=== PATIENT | male | born 2005 | race Caucasian/White ===

== ENCOUNTER 2023-04-20 13:50 | Emergency (ER) | payer BC, SELFPAY ==
[2023-04-20 13:56] VITALS: BP 138/85; PULSE 77; RESP 16; TEMP 36.4; O2SAT 100; BMI 23.7
--- NOTE | 2023-04-20 14:08 | ED.NAVMDI1 ---
Documented by User: Deannapartha Damonon 04/20/23 15:52 HPI - Nausea/Vomiting/Diarrhea General Chief complaint: Nausea/Vomiting/Diarrhea Stated complaint: HOT/COLD FLASHES/HEADACHES/NAUSEA/DIARRHEA Time Seen by Provider: 04/20/23 14:07 Source: patient Mode of arrival: walk-in Limitations: no limitations History of Present Illness HPI Narrative: 18 year old male presents to the ED for fatigue, nausea, diarrhea. Onset was a few days ago. Denies fever, JAVED, dizziness, sore throat, congestion. Denies CP, cough, SOB. Denies back pain, emesis, urinary sx. His family member states he has been feeling lightheaded. He reports he has increased his oral fluid intake. He states he does not feel dehydrated. He is declining testing for Covid-19. He declined IV fluids, nausea medication. He denies pain at this time. MD elicited complaint: Reports nausea and diarrhea; Denies vomiting, abdominal pain or flank pain Related Data Home Medications Medication Instructions Recorded Confirmed No Known Home Medications 04/20/23 04/20/23 Allergies Allergy/AdvReac Type Severity Reaction Status Date / Time No Known Drug Allergies Allergy Verified 04/20/23 14:02 Review of Systems ROS Constitutional Reports: fatigue; Denies: fever or chills Ears, nose, mouth, and throat Denies: throat pain, neck pain, nasal discharge or nasal congestion Cardiovascular Denies: chest pain Respiratory Denies: shortness of breath or cough Gastrointestinal Reports: nausea and diarrhea; Denies: abdominal pain or vomiting Musculoskeletal Denies: back pain or neck pain Integumentary/Breast Denies: rash Neurological Denies: headache or dizziness Exam Constitutional Vital Signs, click to edit/add: Last Vital Signs Temp 97.5 F L 04/20/23 13:56 Pulse 77 04/20/23 13:56 Resp 16 04/20/23 13:56 BP 138/85 04/20/23 13:56 Pulse Ox 100 04/20/23 13:56 O2 Del Method Room Air 04/20/23 13:56 Common normals: no apparent distress, oriented x3, healthy appearing and alert General appearance: cooperative; not in distress and not ill appearing Orientation/consciousness: Yes awake HENMT Common normals: moist oral mucous membranes Face and sinus: normal facial exam and face symmetric Nose: external nose normal External auditory canal: EACs normal Mouth: oral and palatal mucosa normal, lip normal and tongue normal; no drooling Throat: posterior oropharynx normal and uvula midline; no uvular edema Neck & C-Spine Common normals: supple Chest Chest: symmetrical chest wall rise Respiratory Common normals: normal respiratory effort, no use of accessory muscles and clear to auscultation bilaterally Cardio Common normals: regular rate and regular rhythm GI Common normals: Normal to inspection, nondistended, normoactive bowel sounds present, soft to palpation and non-tender Back & Pelvis Common normals: thoracic and lumbar spine normal to inspection Neuro Common normals: oriented x3 Sensorium/orientation: awake and alert Course Vital Signs Vital signs: Vital Signs Temperature 97.5 F L 04/20/23 13:56 Pulse Rate 77 04/20/23 13:56 Respiratory Rate 16 04/20/23 13:56 Blood Pressure 138/85 04/20/23 13:56 Pulse Oximetry 100 04/20/23 13:56 Oxygen Delivery Method Room Air 04/20/23 13:56 Temperature 97.5 F L 04/20/23 13:56 Pulse Rate 77 04/20/23 13:56 Respiratory Rate 16 04/20/23 13:56 Blood Pressure 138/85 04/20/23 13:56 Pulse Oximetry 100 04/20/23 13:56 Oxygen Delivery Method Room Air 04/20/23 13:56 MDM - Nausea/Vomiting/Diarrhea MDM Narrative Medical decision making narrative: CBC and BMP were unremarkable. He was encouraged to follow up with his pcp for a recheck, further evaluation and treatment. He declined medications here. He declined prescriptions for home. He did request a work note. Medical Records Attestation: I reviewed the patient's medical records. Lab Data Attestation: I reviewed the patient's lab results. Labs: Lab Results 04/20/23 Range/Units 14:19 WBC 4.2 (4.0-11.0) 10^3/uL RBC 4.95 (4.70-6.10) 10^6/uL Hgb 15.0 (14.0-18.0) g/dL Hct 41.1 L (42.0-54.0) % MCV 83.0 (80.0-94.0) fL MCH 30.3 (25.9-34.0) pg MCHC 36.5 H (29.9-35.2) g/dL RDW 11.9 (11.0-15.0) % Plt Count 136 L (150-450) 10^3/uL MPV 9.4 L (9.5-13.5) fL Seg Neuts % (Manual) 59.0 Lymphocytes % (Manual) 32.0 (20.5-60.0) % Atypical Lymphs % (Man) 2.0 % Monocytes % (Manual) 7.0 (1.7-12.0) % Eosinophils % (Manual) 0.0 L (0.9-7.0) % Basophils % (Manual) 0.0 L (0.2-2.0) % Neutrophils # (Manual) 2.47 (1.4-6.5) 10^3/uL Lymphocytes # (Manual) 1.34 (1.20-3.80) 10^3/uL Abs Atypical Lymphs Man 0.1 Monocytes # (Manual) 0.29 L (0.30-0.80) 10^3/uL Eosinophils # (Manual) 0.00 (0.00-0.70) 10^3/uL Basophils # (Manual) 0.00 (0.00-0.10) 10^3/uL Sodium 137 (136-145) mmol/L Potassium 3.6 (3.5-5.1) mmol/L Chloride 99 (98-107) mmol/L Carbon Dioxide 28.6 (21.0-32.0) mmol/L Anion Gap 13.0 BUN 14.0 (7.0-18.0) mg/dL Creatinine 1.19 (0.70-1.30) mg/dL Est GFR ( Amer) >60 (>=60) Est GFR (Non-Af Amer) >60 (>=60) BUN/Creatinine Ratio 11.8 Glucose 91 (74-106) mg/dL Calcium 8.9 (8.5-10.1) mg/dL Total Bilirubin 0.9 (0.2-1.0) mg/dL AST 31 (15-37) U/L ALT 47 (16-63) U/L Alkaline Phosphatase 78 (46-116) U/L Total Protein 7.5 (6.4-8.2) g/dL Albumin 3.9 (3.4-5.0) g/dL Globulin 3.6 g/dL Albumin/Globulin Ratio 1.1 Discharge Plan Discharge Chief Complaint: Nausea/Vomiting/Diarrhea Clinical Impression: Acute viral syndrome Patient Disposition: Home, Self-Care Time of Disposition Decision: 15:27 Condition: Good Mode of Transportation: Private Vehicle Prescriptions / Home Meds: No Action No Known Home Medications Instructions: Acute Nausea and Vomiting (ED), Acute Diarrhea (ED), Viral Syndrome (ED) Stand Alone Forms: Portal Instructions Referrals: Luis Carlos Betancourt MD [Primary Care Provider] - 1 week Discharge Date/Time: 04/20/23 15:35 Documented by User: Azalea Waldrop MD 04/20/23 17:05 HPI - Nausea/Vomiting/Diarrhea General Chief complaint: Nausea/Vomiting/Diarrhea Stated complaint: HOT/COLD FLASHES/HEADACHES/NAUSEA/DIARRHEA Time Seen by Provider: 04/20/23 14:07 Related Data Home Medications Medication Instructions Recorded Confirmed No Known Home Medications 04/20/23 04/20/23 Allergies Allergy/AdvReac Type Severity Reaction Status Date / Time No Known Drug Allergies Allergy Verified 04/20/23 14:02 Exam Constitutional Vital Signs, click to edit/add: Last Vital Signs Temp 97.5 F L 04/20/23 13:56 Pulse 77 04/20/23 13:56 Resp 16 04/20/23 13:56 BP 138/85 04/20/23 13:56 Pulse Ox 100 04/20/23 13:56 O2 Del Method Room Air 04/20/23 13:56 Course Vital Signs Vital signs: Vital Signs Temperature 97.5 F L 04/20/23 13:56 Pulse Rate 77 04/20/23 13:56 Respiratory Rate 16 04/20/23 13:56 Blood Pressure 138/85 04/20/23 13:56 Pulse Oximetry 100 04/20/23 13:56 Oxygen Delivery Method Room Air 04/20/23 13:56 Temperature 97.5 F L 08/28/23 13:56 Pulse Rate 77 04/20/23 13:56 Respiratory Rate 16 04/20/23 13:56 Blood Pressure 138/85 04/20/23 13:56 Pulse Oximetry 100 04/20/23 13:56 Oxygen Delivery Method Room Air 04/20/23 13:56 MDM - Nausea/Vomiting/Diarrhea MDM Narrative Medical decision making narrative: CBC and BMP were unremarkable. He was encouraged to follow up with his pcp for a recheck, further evaluation and treatment. He declined medications here. He declined prescriptions for home. He did request a work note. Attending physician attestation I have reviewed the mid-level documentation, agree with the documentation, medical decision making and treatment plan as outlined by the mid-level provider. Lab Data Labs: Lab Results 04/20/23 Range/Units 14:19 WBC 4.2 (4.0-11.0) 10^3/uL RBC 4.95 (4.70-6.10) 10^6/uL Hgb 15.0 (14.0-18.0) g/dL Hct 41.1 L (42.0-54.0) % MCV 83.0 (80.0-94.0) fL MCH 30.3 (25.9-34.0) pg MCHC 36.5 H (29.9-35.2) g/dL RDW 11.9 (11.0-15.0) % Plt Count 136 L (150-450) 10^3/uL MPV 9.4 L (9.5-13.5) fL Seg Neuts % (Manual) 59.0 Lymphocytes % (Manual) 32.0 (20.5-60.0) % Atypical Lymphs % (Man) 2.0 % Monocytes % (Manual) 7.0 (1.7-12.0) % Eosinophils % (Manual) 0.0 L (0.9-7.0) % Basophils % (Manual) 0.0 L (0.2-2.0) % Neutrophils # (Manual) 2.47 (1.4-6.5) 10^3/uL Lymphocytes # (Manual) 1.34 (1.20-3.80) 10^3/uL Abs Atypical Lymphs Man 0.1 Monocytes # (Manual) 0.29 L (0.30-0.80) 10^3/uL Eosinophils # (Manual) 0.00 (0.00-0.70) 10^3/uL Basophils # (Manual) 0.00 (0.00-0.10) 10^3/uL Sodium 137 (136-145) mmol/L Potassium 3.6 (3.5-5.1) mmol/L Chloride 99 (98-107) mmol/L Carbon Dioxide 28.6 (21.0-32.0) mmol/L Anion Gap 13.0 BUN 14.0 (7.0-18.0) mg/dL Creatinine 1.19 (0.70-1.30) mg/dL Est GFR ( Amer) >60 (>=60) Est GFR (Non-Af Amer) >60 (>=60) BUN/Creatinine Ratio 11.8 Glucose 91 (74-106) mg/dL Calcium 8.9 (8.5-10.1) mg/dL Total Bilirubin 0.9 (0.2-1.0) mg/dL AST 31 (15-37) U/L ALT 47 (16-63) U/L Alkaline Phosphatase 78 (46-116) U/L Total Protein 7.5 (6.4-8.2) g/dL Albumin 3.9 (3.4-5.0) g/dL Globulin 3.6 g/dL Albumin/Globulin Ratio 1.1 Discharge Plan Discharge Chief Complaint: Nausea/Vomiting/Diarrhea Clinical Impression: Acute viral syndrome Patient Disposition: Home, Self-Care Time of Disposition Decision: 15:27 Condition: Good Mode of Transportation: Private Vehicle Prescriptions / Home Meds: No Action No Known Home Medications Instructions: Acute Nausea and Vomiting (ED), Acute Diarrhea (ED), Viral Syndrome (ED) Stand Alone Forms: Portal Instructions Referrals: Luis Carlos Betancourt MD [Primary Care Provider] - 1 week Discharge Date/Time: 04/20/23 15:35
[2023-04-20 14:54] LABS: Hematocrit 41.1 % (42.0-54.0); Mean Corpuscular HGB Conc 36.5 g/dL (29.9-35.2); Mean Corpuscular Hemoglobin 30.3 pg (25.9-34.0); Mean Platelet Volume 9.4 fL (9.5-13.5); Platelet Count 136 10^3/uL (150-450); Red Blood Count 4.95 10^6/uL (4.70-6.10); Red Cell Distribution Width 11.9 % (11.0-15.0); White Blood Count 4.2 10^3/uL (4.0-11.0)
[2023-04-20 14:58] LABS: Alanine Aminotransferase 47 U/L (16-63); Albumin Globulin Ratio 1.1; Albumin Level 3.9 g/dL (3.4-5.0); Alkaline Phosphatase 78 U/L (46-116); Aspartate Amino Transferase 31 U/L (15-37); BUN Creatinine Ratio 11.8; Bilirubin Total 0.9 mg/dL (0.2-1.0); Calcium 8.9 mg/dL (8.5-10.1); Carbon Dioxide 28.6 mmol/L (21.0-32.0); Chloride 99 mmol/L (98-107); Estimated GFR (African America >60 (>=60); Estimated GFR (Non-African Ame >60 (>=60); Globulin 3.6 g/dL; Glucose 91 mg/dL (74-106); Potassium 3.6 mmol/L (3.5-5.1); Sodium 137 mmol/L (136-145); Total Protein 7.5 g/dL (6.4-8.2)
[2023-04-20 15:29] LABS: Segmented Neut Absolute Manual 2.47 10^3/uL (1.4-6.5)
[2023-04-20 15:30] LABS: Atypical Lymphocytes Abs Man 0.1; Lymphocytes Absolute Manual 1.34 10^3/uL (1.20-3.80); Monocytes Absolute Manual 0.29 10^3/uL (0.30-0.80)
== END 2023-04-20 15:35 | disposition home or self-care (01) ==
PROVIDERS: Nurse Practitioner Family; Emergency Provider Emergency Medicine; PCP Family Medicine
DX: B34.9 Viral infection, unspecified (principal)
CPT/HCPCS: 36415; 80053; 85027; 99283